=== PATIENT | female | born 1935 | race American Indian/Alaskan Native ===

== ENCOUNTER 2019-01-09 14:01 | Inpatient (IN) | payer OTHER ==
[~2019-01-09] VITALS: Ht 157.5 cm; Wt 70.2 kg
[~2019-01-09 14:01] MED LIST: CALCA500CH; CHOL10002 PO; EZET10 PO; LEVSOD50 PO; Prinivil10 MG PO; [UNRECOGNIZED DRUG - OTHER]
[2019-01-09 14:41] LABS: BASOPHILS ABSOLUTE AUTO 0.06 K/mm3 (0.00-0.23); BASOPHILS PERCENT AUTO 1 % (0-2); EOSINOPHILS PERCENT AUTO 0 % (0-6); Hematocrit 42.8 % (33.0-51.0); Hemoglobin 13.3 g/dL (11.5-16.0); IMMATURE GRAN ABSOLUTE AUTO 0.02 K/mm3 (0.00-0.10); IMMATURE GRAN PERCENT AUTO 0 % (0-1); LYMPHOCYTES ABSOLUTE AUTO 1.17 K/mm3 (0.84-5.20); LYMPHOCYTES PERCENT AUTO 16 % (21-46); MONOCYTES ABSOLUTE AUTO 0.35 K/mm3 (0.16-1.47); MONOCYTES PERCENT AUTO 5 % (4-13); Mean Corpuscular HGB 29.1 pg (26.0-34.0); Mean Corpuscular HGB Conc 31.1 g/dL (31.5-36.5); Mean Corpuscular Volume 94 fL (80-100); Mean Platelet Volume 9.9 fL (9.1-12.4); NEUTROPHILS ABSOLUTE AUTO 5.89 K/mm3 (1.96-9.15); NEUTROPHILS PERCENT AUTO 79 % (41-73); Platelet Count 302 K/mm3 (150-400); RDW Coefficient Variation 14.1 % (11.7-14.2); RDW Standard Deviation 48.3 fL (35.1-46.3); Red Blood Cell Count 4.57 M/mm3 (3.80-5.20); White Blood Cell Count 7.49 K/mm3 (4.00-11.30)
[2019-01-09 14:58] LABS: Albumin, Blood 4.3 g/dL (3.4-5.0); Bilirubin, Total 0.8 mg/dL (0.1-1.0); Bun/Creatinine Ratio 21.7 (12.0-20.0); Calcium, Blood 9.3 mg/dL (8.5-10.1); Creatinine, Blood 1.2 mg/dL (0.40-1.00); Globulin, Blood 4.4 g/dL (2.2-4.0); Potassium, Blood 3.9 mmol/L (3.5-5.5); Total Protein, Blood 8.7 g/dL (6.4-8.2)
[2019-01-09 20:25] LABS: Source, Urine Catheter
[2019-01-09 20:28] LABS: Appearance, Urine Clear (Clear); Bilirubin, Urine Neg (Neg); Blood, Urine 2+ (Neg); Color, Urine Yellow (P-Yellow); Glucose Qualitative, Urine Neg (Neg); Ketones, Urine 3+ (Neg); Leukocyte Esterase, Urine 3+ (Neg); Nitrite, Urine Neg (Neg); Protein, Urine 2+ (Neg); Urobilinogen, Urine NORM (Normal)
[2019-01-09 20:39] LABS: Bacteria Not Seen /hpf; Red Blood Cells, Urine 0-2 /hpf (0-2); Squamous Epithelial Cells Few /hpf (Few)
[2019-01-09] MEDS ORDERED: METO50ER PO (20:43)
[2019-01-09] MEDS ORDERED: QUET25 PO (20:44)
[2019-01-09] MEDS ORDERED: CLON.5 PO (20:45)
[2019-01-09] MEDS ORDERED: DONE5 PO (20:47)
[2019-01-09] MEDS ORDERED: AMLO5 PO (20:49)
--- NOTE | 2019-01-10 02:06 | NUR ---
CONVERTED TO AFLUTTER AT APPROX 0130 PT CONVERTED FROM NSR IN THE 80'S TO AFLUTTER IN THE 120-130'S. NOTIFIED DR. GARCIA. NEW ORDER TO GIVE 5 MG IV LOPRESSOR NOW AND RECHECK IN 30 MINUTES AND GIVE SECOND DOSE OF 5 MG IV LOPRESSOR IF NOT IMPROVED.
--- NOTE | 2019-01-10 02:55 | NUR ---
TELMETRY TECH CALLED AND PT'S HEART RATE DECREASED AND IS CURRENTLY IN THE 90'S.
[2019-01-10 05:28] LABS: BASOPHILS ABSOLUTE AUTO 0.03 K/mm3 (0.00-0.23); BASOPHILS PERCENT AUTO 1 % (0-2); EOSINOPHILS ABSOLUTE AUTO 0.01 K/mm3 (0.00-0.68); EOSINOPHILS PERCENT AUTO 0 % (0-6); Hematocrit 36.4 % (33.0-51.0); IMMATURE GRAN ABSOLUTE AUTO 0.01 K/mm3 (0.00-0.10); IMMATURE GRAN PERCENT AUTO 0 % (0-1); LYMPHOCYTES ABSOLUTE AUTO 1.49 K/mm3 (0.84-5.20); LYMPHOCYTES PERCENT AUTO 31 % (21-46); MONOCYTES ABSOLUTE AUTO 0.47 K/mm3 (0.16-1.47); MONOCYTES PERCENT AUTO 10 % (4-13); Mean Corpuscular HGB 29.1 pg (26.0-34.0); Mean Corpuscular HGB Conc 30.2 g/dL (31.5-36.5); Mean Corpuscular Volume 96 fL (80-100); Mean Platelet Volume 9.8 fL (9.1-12.4); NEUTROPHILS ABSOLUTE AUTO 2.75 K/mm3 (1.96-9.15); NEUTROPHILS PERCENT AUTO 58 % (41-73); Platelet Count 202 K/mm3 (150-400); RDW Coefficient Variation 14.2 % (11.7-14.2); RDW Standard Deviation 50.4 fL (35.1-46.3); Red Blood Cell Count 3.78 M/mm3 (3.80-5.20); White Blood Cell Count 4.76 K/mm3 (4.00-11.30)
[2019-01-10 05:49] LABS: Anion Gap 10 mmol/L (6-16); Blood Urea Nitrogen 25 mg/dL (8-24); Bun/Creatinine Ratio 26.8 (12.0-20.0); CO2, Blood 21 mmol/L (21-32); Calcium, Blood 8.3 mg/dL (8.5-10.1); Chloride, Blood 114 mmol/L (98-108); Creatinine, Blood 0.93 mg/dL (0.40-1.00); Glomerular Filtration Rate >60 (60-); Glucose, Blood 91 mg/dL (70-99); Potassium, Blood 3.7 mmol/L (3.5-5.5); Sodium, Blood 145 mmol/L (136-145)
--- NOTE | 2019-01-10 06:17 | NUR ---
SHIFT SUMMARY PT NEW ED ADMIT THIS EVENING. CONFUSED AND FORGETS ANYTHING SOON AFTER SHE IS TOLD. PT ALSO HAS EXPRESSIVE APHASIA AND HAS DIFFICULTY FINDING HER WORDS AT TIMES. BRUISE AROUND R EYE AND ON R SHOULDER FROM FALL AT HOME. FALL WAS UNWITNESSED PER FAMILY, SON NOTICED IT AFTER WAKING IN THE AM BEFORE PT WAS BROUGHT TO EMERGENCY DEPARTMENT. PT CONFIRMED TO HAVE HAD A STROKE. AMBULATED 1 ASSIST TO [facility]. VOIDED ONLY A SMALL AMOUNT OF VERY DARK URINE. SAMPLE SENT TO LAB. PT MADE NPO, HOWEVER, FAMILY WAS CONCERNED ABOUT PT NOT GETTING HER CLONAZEPAM AND SEROQUEL BEFORE BED. SPOKE WITH ROSSANA HERNANDEZ WHO OKAY'D PT TO TAKE NIGHT TIME MEDICATIONS LONG SHE COULD PASS A SIMPLE BEDSIDE SWALLOW TEST. PT WAS ABLE TO SWALLOW A SIP OF WATER WITH NO PROBLEMS. SPEECH THERAPY ORDERED TO FURTHER EVALUATE. PT SLEPT MOST OF THE NIGHT, SON AT BEDSIDE. HEART RATE CONVERTED AND BECAME ELEVATED THIS EVENING. SEE NOTE. OTHERWISE VSS. WILL CONTINUE TO MONITOR.
--- NOTE | 2019-01-10 06:30 | NUR ---
TELEMETRY JUST CALLED AND PT'S HEART RATE BECAME ELEVATED AGAIN. REMAINS IN AFLUTTER AND JUMPED UP TO 158. WILL GIVE SECOND DOSE OF IV METOPROLOL PREVIOUSLY ORDERED AND MONITOR.
--- NOTE | 2019-01-10 13:31 | NUR ---
ECHOCARDIOGRAM COMPLETE
--- NOTE | 2019-01-10 18:32 | NUR ---
SUMMARY DX CVA. ROSLYN, SHE TRACKS WELL, COMMANDS EXTREMITIES, NO FACIAL DROOP NOTED, SPEECH CLEAR, GENERAL MANAGER/DORSI FLEX STRONG. SHE IS FORGETFUL, DEMONSTRATES CONFUSION. FAMILY STATE THIS AM THAT SHE HAS HX DEMENTIA HOWEVER MORE CONFUSED & FORGETFUL THAN USUAL. SHE PULLED HER IV OUT THIS MORNING. SHE HAS IMPROVED T/O DAY. THIS AFTERNOON THEY STATE SPEECH/MENTATION MUCH IMPROVED NEAR TO BASLINE. TELE HAS BEEN AFLUTTER T/O DAY, HR INCREASES WITH EXERTION, TELE REPORT UP TO 150'S, ORDER METOPROLOL, HR IMPROVED 108 HOWEVER AFLUTTER CONTINUES. R EYE BRUISING, R SHOULDER/ARM BRUISING D/T FALL @ HOME/FAMILY. PT STATE NO PAIN.
--- NOTE | 2019-01-10 21:25 | NUR ---
PT PULLED OUT IV. BOARD WINDERSUKUMAR Mendes ATTEMPTING TO GAIN ACCESS AT THIS TIME.
--- NOTE | 2019-01-11 04:36 | NUR ---
SHIFT SUMMARY PT'S DAUGHTER AT BEDSIDE UNTIL APPROX 2330. APPROX AN HOUR AND A HALF AFTER DAUGHTER LEFT PT WOKE AND WAS VERY UPSET. STATING THAT SHE NEEDED TO GO HOME AND DID NOT WANT TO BE IN THE HOSPITAL. UNAWARE OF WHERE SHE WAS EVEN AFTER BEING TOLD MULTIPLE TIMES. PT PULLED OUT IV AGAIN THIS EVENING. HAD TO HAVE PCU NURSE NEAL FRITZ UP TO USE ULTRASOUND TO PLACE NEW IV. IV WRAPPED WELL AND PT HAS LEFT ALONE SO FAR THE REST OF THIS SHIFT. PT ALSO ATTEMPTED TO REMOVE TELE WHILE AWAKE. TELEMETRY READING AFLUTTER LOW 100'S AT START OF SHIFT. AT APPROX 0122 PT CONVERTED BACK INTO SINUS RHYTHM WITH A RATE OF 65. WAS ABLE TO GET PT TO CALM DOWN AND GET BACK TO SLEEP BUT IT TOOK A LOT OF TIME AND CONVINCING. PT UP TO RESTROOM EASY SBA. VOIDED X 2 THIS SHIFT. URINE CONCENTRATED. ENCOURAGED PT TO DRINK WATER WHILE AWAKE. PT SLEEPING WELL AT THIS TIME. WILL CONTINUE TO MONITOR AND REPORT TO DAY RN.
[2019-01-11 05:24] LABS: BASOPHILS ABSOLUTE AUTO 0.05 K/mm3 (0.00-0.23); BASOPHILS PERCENT AUTO 1 % (0-2); EOSINOPHILS ABSOLUTE AUTO 0.01 K/mm3 (0.00-0.68); EOSINOPHILS PERCENT AUTO 0 % (0-6); Hematocrit 38.6 % (33.0-51.0); Hemoglobin 11.9 g/dL (11.5-16.0); IMMATURE GRAN ABSOLUTE AUTO 0.01 K/mm3 (0.00-0.10); IMMATURE GRAN PERCENT AUTO 0 % (0-1); LYMPHOCYTES ABSOLUTE AUTO 1.87 K/mm3 (0.84-5.20); LYMPHOCYTES PERCENT AUTO 34 % (21-46); MONOCYTES ABSOLUTE AUTO 0.41 K/mm3 (0.16-1.47); MONOCYTES PERCENT AUTO 7 % (4-13); Mean Corpuscular HGB 28.5 pg (26.0-34.0); Mean Corpuscular HGB Conc 30.8 g/dL (31.5-36.5); Mean Platelet Volume 9.6 fL (9.1-12.4); NEUTROPHILS ABSOLUTE AUTO 3.19 K/mm3 (1.96-9.15); NEUTROPHILS PERCENT AUTO 58 % (41-73); Platelet Count 249 K/mm3 (150-400); RDW Coefficient Variation 14.3 % (11.7-14.2); RDW Standard Deviation 47.8 fL (35.1-46.3); Red Blood Cell Count 4.17 M/mm3 (3.80-5.20); White Blood Cell Count 5.54 K/mm3 (4.00-11.30)
[2019-01-11 05:25] LABS: Mean Corpuscular Volume 93 fL (80-100)
[2019-01-11 06:00] LABS: CHOL/HDL RATIO 2.1; Cholesterol 177 mg/dL (50-200); HDL Cholesterol 84 mg/dL (>39); LDL/HDL RATIO 0.8; Low Density Lipoprotein Chol 69 mg/dL (0-110); Triglycerides 119 mg/dL (30-160); Very Low Density Lipoprot Chol 23 mg/dL (6-32)
--- NOTE | 2019-01-11 16:04 | NUR ---
SHIFT SUMMARY NO ACUTE CHANGES. WORKED WITH PT AND OT. SPEECH EVAL COMPLETED. PATIENT SBA TO AMBULATE TO BATHROOM. FAMILY MET WITH CARE MANAGEMENT TO DISCUSS CAREGIVING OPTIONS. PATIENT NEEDS 24HOUR SUPERVISION. MEDICATED X 1 FOR HEADACHE, DENIES NAUSEA AND SHORTNESS OF BREATH. CALL LIGHT IN REACH, WILL CONTINUE TO MONITOR.
--- NOTE | 2019-01-11 17:06 | NUR ---
Per admit trigger, I attempted to meet with Mrs. Sullivan regarding an advanced directive. she was on the phone and did not wish to talk to me. Care-patent engineer/friend at bedside. She tells me a POLST has been completed and is most likely at Dr. Elise's office. Advised we should have a copy of this document. Advanced directive information left with friend. I will remain available.
--- NOTE | 2019-01-11 23:13 | NUR ---
PT VERYY CONFUSED AND ANXIOUS TONIGHT. ATTEMPTED TO CALM PT DOWN, BUT PT BECAME VERY FRANTIC AND AGITATED. PLACED CALL TO SON, COLLEEN, WHO CAME TO HOSPITAL TO BE AT PTs BEDSIDE. PT IS MUCH MORE CALM AT THIS TIME.
--- NOTE | 2019-01-12 05:41 | NUR ---
SHIFT SUMMARY: PT CONFUSED, FRANTIC, AND ANXIOUS ALL OF TONIGHT. PT KEEPS STATING, "THIS IS BIZARRE, I DONT UNDERSTAND WHY IM HERE." AND "WHERE AM I? WHY CANT I GO HOME?" AFTER REORIENTING PT SHE BECOMES CONFUSED AGAIN AND REPEATEDLY ASKS THE SAME QUESTIONS. PT IS UNABLE TO CALM DOWN AND REFUSES ALL PM MEDS FROM THIS RN. PT BECOMES TEARFUL AND CRYING OUT TO GO HOME. PT EXITS BED AND SETS OFF BED ALARM REPEATEDLY; FALL RISK D/T CONFUSION. PLACED CALL TO PT SONCOLLEEN. SON CAME TO HOSPITAL TO BE AT PT'S BEDSIDE T/O THE NIGHT. SON ABLE TO CONVINCE PT TO TAKE PM PILLS, SEROQUEL AND PRN CLONAZEPAM. PT CALMED DOWN AFTER SON ARRIVED AND WAS ABLE TO SLEEP 2-3 HRS TONIGHT. SON LEFT EARLY THIS AM, AND PT HAS BEEN FRANTIC AND ANXIOUS SINCE HE LEFT. PT DOES NOT RECALL SON EVER BEING AT BEDSIDE TONIGHT. PT IS ASKING THE SAME QUESTIONS AGAIN AND IS DISORIENTED AND UNCONSOLABLE. BED ALARM IS ON FOR SAFETY. NO OTHER CHANGES TO REPORT. WILL CONT TO MONITOR AND PROVIDE CARE UNTIL PRESUMED BY ONCOMING RN.
--- NOTE | 2019-01-12 16:51 | NUR ---
SHIFT SUMMARY NO ACUTE CHANGES. PATIENT CALM AND COOPERATIVE DURING DAY. WORKED WITH PT/OT. FAMILY AT BEDSIDE. THIS AFTERNOON AFTER FAMILY LEFT PATIENT BECAME VERY AGITATED AND TEARFUL ASKING WHERE SHE WAS AND WHY HER FAMILY WAS NOT HERE. PATIENT REASSURED THAT THEY WOULD BE BACK. PATIENT DENIES NAUSEA, PAIN, AND SHORTNESS OF BREATH. CALL LIGHT IN REACH, WILL CONTINUE TO MONITOR.
--- NOTE | 2019-01-12 19:23 | NUR ---
Initial Visit: Palliative Care Consult for AD/POLST and Advanced Care Planning. Pt is A&Ox2. She is unable to state current month and year. Pt denies pain at this time. She reports anxiety but unable to report intensity. She states the anxiety is due to being in the hospital and having a stroke. Pt's son Jay, and daughter in law Mary are present during visit. Pt reports that she is of [employer]ish peggy and denies a need for a comb machine operator visit at this time. Engaged in therapeutic conversation regarding goals of care. Jay and Mary report the plan is for Jay and Mary to sell their home and move in with the Pt to provide care. They also plan to provide caregivers. Mary reports the Pt develops significant anxiety when they leave from visiting the Pt in the hospital and Jay has come back and spent the night with her. Mary and Jay reports having someone familiar with her at all times helps with managing the Pt's anxiety. Validated this plan and educated family on disease process including signs and symptoms the Pt may experience as the disease process takes its coarse. Educated family on the importance of routine and continuity of care as well. Discussed AD/POLST with Pt and family. Mary reports that she thought the Pt had a completed POLST but has not seen it. Left POLST and AD with family and educated on each section to complete including risk factors of life sustaining measures. V/U made by family. Family reports they will look for existing POLST and complete a new one if needed. No other concerns reported at this time. Plan: Obtain copy of POLST/AD once completed. Will remain available.
--- NOTE | 2019-01-13 07:50 | NUR ---
SHIFT SUMMARY: PT HAD A MUCH BETTER NIGHT, NO ANXIETY OR AGITATION. ADMINISTERED PM MEDS EARLY PER FAMILY REQUEST AND PT FELL ASLEEP AROUND 2200 AND STAYED ASLEEP T/O THE NIGHT. THIS AM UPON WAKING, PT WAS NOT ANXIOUS AND COOPERATIVE c CARE. ALERT TO SELF AND FAMILY ONLY. TELE IN PLACE; NSR @ 69 BPM. WILL CONT TO MONITOR AND PROVIDE CARE UNTIL PRESUMED BY ONCOMING RN.
--- NOTE | 2019-01-13 11:07 | NUR ---
IV CARDIZEM WAS GIVEN WITH GOOD RESULTS. SHE IS STILL A FLUTTER BUT RATE CONTROLLED.
--- NOTE | 2019-01-13 11:17 | NUR ---
I WAS NOTIFIED BY THE TAPE SEWING MACHINE OPERATOR THIS MORNING AFTER BREAKFAST THAT VAZQUEZ WAS TACHY AT 160/MIN. SHE HAD BEEN TACHY. SHE WAS COMPLETELY ASYMPTOMATIC THROUGHOUT THE AM BEING ASSISTED TO THE BATHROOM A COUPLE OF TIMES, UP IN THE CHAIR FOR BREAKFAST AND AMBULATING THE HULL BEFORE BREAKFAST WITH PT. LATER I WAS NOTIFIED THE RHYTHM WAS AFLUTTER WITH RATE THEN 133. I NOTIFIED MD. HE ORDERED THE ONE TIME DOSE OF CARDIZEM WHICH WAS EFFECTIVE. HER DIL BERNARDO IS HERE. SHE UNDERSTANDS THAT VAZQUEZ HAD TO BE TREATED FOR THE ARRYTHMIA THIS MORNING.
[2019-01-13] MEDS ORDERED: Lopressor 25 mg25 MG PO (13:11)
[2019-01-13] MEDS ORDERED: ATOR40TA PO ×3 (13:12→13:24)
[2019-01-13] MEDS ORDERED: ASPI81CH PO (13:12)
--- NOTE | 2019-01-13 13:13 | NUR ---
SHE IS DRESSED AND READY FOR DISCHARGE. OT HELPED HER. HER DIL WENT HOME TO GET A DIFFERENT VEHICLE. VAZQUEZ WAS IN NSR FOR A VERY SHORT PERIOD THEN BACK IN AFLUTTER BUT RATE CONTROLLED. SHE WAS NEVER SYMPTOMATIC. SHE AMBULATES WELL. SL DC'D. SITE PINK. TELE DC'D.
[2019-01-13] MEDS ORDERED: CEFU500T30 PO (13:26)
[2019-01-13] MEDS ORDERED: XARELTO15 MG PO (13:27)
--- NOTE | 2019-01-13 15:10 | NUR ---
SHE HAS FALLEN ASLEEP IN THE CHAIR WAITING FOR HER DIL TO RETURN.
--- NOTE | 2019-01-13 17:02 | NUR ---
DISCHARGED TO HOME AT 1613 WITH HER DIL. SHE HAS INSTRUCTIONS AND BELONGINGS.
== END 2019-01-13 16:13 | disposition home or self-care (01) | DRG 65 ==
LOC: ER 14:01 → MEDS 19:38
PROVIDERS: Internal Medicine; Nurse Practitioner Acute Care; Physician Assistant; ADMIT Hospitalist
DX: I63.9 Cerebral infarction, unspecified (principal); N17.9 Acute kidney failure, unspecified; N39.0 Urinary tract infection, site not specified; G93.40 Encephalopathy, unspecified; R48.2 Apraxia; I10 Essential (primary) hypertension; E03.9 Hypothyroidism, unspecified; W19.XXXA Unspecified fall, initial encounter; F03.90 Unspecified dementia, unspecified severity, without behavioral disturbance, psychotic disturbance, mood disturbance, and anxiety; B95.5 Unspecified streptococcus as the cause of diseases classified elsewhere; I48.0 Paroxysmal atrial fibrillation
CPT/HCPCS: 36415; 70450; 72125; 73030; 80048; 80053; 80061; 81001; 84443; 85025; 87086; 87147; 90686; 92507; 92523; 93306; 93880; 97116; 97162; 97166; 97530; 97535; 99285-25; J0690; J0696; J1650; J7030; J7050

== ENCOUNTER → 2019-01-19 | Outpatient (CLI) | payer OTHER ==
[~2019-01-19] MED LIST changes: +AMLO5 PO; +ASPI81CH PO; +ATOR40TA PO; +CEFU500T30 PO; +CLON.5 PO; +DONE5 PO; +Lopressor 25 mg25 MG PO; +METO50ER PO; +QUET25 PO; +XARELTO15 MG PO
[2019-01-19 14:10] LABS: Source, Urine Clean Catch
[2019-01-19 14:16] LABS: Blood, Urine 2+ (Neg); Glucose Qualitative, Urine Neg (Neg); Ketones, Urine 1+ (Neg); Leukocyte Esterase, Urine 2+ (Neg); Nitrite, Urine Neg (Neg); Protein, Urine 2+ (Neg); Specific Gravity, Urine 1.025 (1.003-1.022); Urobilinogen, Urine NORM (Normal)
[2019-01-19 14:32] LABS: Bilirubin, Urine 1+ (Neg)
[2019-01-19 14:33] LABS: Appearance, Urine Hazy (Clear); Color, Urine Yellow (P-Yellow); Squamous Epithelial Cells Few /hpf (Few)
[2019-01-19 14:34] LABS: Bacteria Few /hpf
== END | disposition home or self-care (01) ==
LOC: LAB HH 14:09
PROVIDERS: Family Medicine
DX: N39.0 Urinary tract infection, site not specified (principal)
CPT/HCPCS: 81001; 87077; 87086; 87186

== ENCOUNTER 2019-09-10 09:14 | Inpatient (IN) | payer OTHER ==
[~2019-09-10] VITALS: Ht 162.6 cm; Wt 66.0 kg
[~2019-09-10 09:14] MED LIST changes: -CHOL10002 PO; +DEXTROMETHORPHAN PO; +LORA.5 PO; +OMEPRAZOLE20 MG PO; +VITAMIN D31000 UNI2 PO
[2019-09-10] MEDS ORDERED: Klonopin0.5 MG PO (09:38)
[2019-09-10] MEDS ORDERED: DONE5 PO ×2 (09:38→11:45)
[2019-09-10] MEDS ORDERED: EZET10 PO (09:39)
[2019-09-10] MEDS ORDERED: ATOR40TA PO (09:39)
[2019-09-10] MEDS ORDERED: Prinivil10 MG PO (09:39)
[2019-09-10] MEDS ORDERED: XARELTO15 MG PO ×3 (09:39→12:52)
[2019-09-10] MEDS ORDERED: Aspirin EC81 MG PO (09:40)
[2019-09-10] MEDS ORDERED: VITAMIN D31000 UNI2 PO (09:40)
[2019-09-10] MEDS ORDERED: LEVSOD50 PO (09:41)
[2019-09-10] MEDS ORDERED: LORA.5 PO (09:41)
[2019-09-10] MEDS ORDERED: METO25ER PO (09:41)
[2019-09-10] MEDS ORDERED: QUET25 PO ×3 (09:42→11:56)
[2019-09-10] MEDS ORDERED: Prilosec10 M1 PO (09:42)
[2019-09-10] MEDS ORDERED: TUSSIN COUGH (09:44)
[2019-09-10 09:49] LABS: BASOPHILS ABSOLUTE AUTO 0.08 K/mm3 (0.00-0.23); BASOPHILS PERCENT AUTO 1 % (0-2); EOSINOPHILS PERCENT AUTO 2 % (0-6); Hemoglobin 9.1 g/dL (11.5-16.0); IMMATURE GRAN ABSOLUTE AUTO 0.02 K/mm3 (0.00-0.10); IMMATURE GRAN PERCENT AUTO 0 % (0-1); LYMPHOCYTES ABSOLUTE AUTO 1.89 K/mm3 (0.84-5.20); LYMPHOCYTES PERCENT AUTO 30 % (21-46); MONOCYTES ABSOLUTE AUTO 0.41 K/mm3 (0.16-1.47); MONOCYTES PERCENT AUTO 7 % (4-13); Mean Corpuscular HGB 27.7 pg (26.0-34.0); Mean Corpuscular HGB Conc 30.3 g/dL (31.5-36.5); Mean Platelet Volume 9.8 fL (9.1-12.4); NEUTROPHILS ABSOLUTE AUTO 3.78 K/mm3 (1.96-9.15); NEUTROPHILS PERCENT AUTO 60 % (41-73); Platelet Count 308 K/mm3 (150-400); RDW Coefficient Variation 15.6 % (11.7-14.2); RDW Standard Deviation 49.2 fL (35.1-46.3); Red Blood Cell Count 3.29 M/mm3 (3.80-5.20); White Blood Cell Count 6.28 K/mm3 (4.00-11.30)
[2019-09-10 09:55] LABS: Mean Corpuscular Volume 91 fL (80-100)
[2019-09-10 10:03] LABS: International Normalized Ratio 0.93; Prothrombin Time Results 9.9 Sec (9.7-11.5)
[2019-09-10 10:06] LABS: Albumin, Blood 3.5 g/dL (3.4-5.0); Bilirubin, Total 0.6 mg/dL (0.1-1.0); Bun/Creatinine Ratio 23.3 (12.0-20.0); Calcium, Blood 8.7 mg/dL (8.5-10.1); Creatinine, Blood 1.2 mg/dL (0.40-1.00); Globulin, Blood 3.5 g/dL (2.2-4.0); Potassium, Blood 4.3 mmol/L (3.5-5.5)
[2019-09-10] MEDS ORDERED: ATORVASTATIN CA40 MG PO (11:43)
[2019-09-10] MEDS ORDERED: OMEPRAZOLE20 MG PO (11:43)
[2019-09-10] MEDS ORDERED: PRINIVIL10 MG PO (11:44)
[2019-09-10] MEDS ORDERED: Lopressor 25 mg25 MG PO (11:45)
[2019-09-10] MEDS ORDERED: Clonazepam0.5 MG PO (11:45)
[2019-09-10] MEDS ORDERED: EZETIMIBE10 MG PO (11:45)
[2019-09-10] MEDS ORDERED: AMLO10 PO (11:46)
[2019-09-10] MEDS ORDERED: ZYRTEC10 M2 PO (11:56)
[2019-09-10] MEDS ORDERED: FERSU300 PO (11:56)
[2019-09-10] MEDS ORDERED: Bactrim 400-801 EACH PO (12:53)
[2019-09-10] MEDS ORDERED: NUEDEXTA 20-101 EACH PO (13:02)
[2019-09-10 13:34] LABS: Source, Urine Catheter
[2019-09-10 13:39] LABS: Bilirubin, Urine Neg (Neg); Blood, Urine Neg (Neg); Glucose Qualitative, Urine Neg (Neg); Ketones, Urine Neg (Neg); Leukocyte Esterase, Urine 3+ (Neg); Nitrite, Urine Pos (Neg); Protein, Urine 1+ (Neg); Urobilinogen, Urine NORM (Normal)
[2019-09-10 13:58] LABS: Appearance, Urine Hazy (Clear); Color, Urine Yellow (P-Yellow)
[2019-09-10 13:59] LABS: Triple Phosphate Crystals Mod /hpf
[2019-09-10 14:00] LABS: Bacteria Many /hpf; Red Blood Cells, Urine 0-2 /hpf (0-2); Squamous Epithelial Cells Rare /hpf (Few)
--- NOTE | 2019-09-10 14:56 | NUR ---
PT ARRIVED FROM THE ER THIS AFTERNOON FROM THE ED. SHE WAS ASSISTED TO BED AND ORIENTED TO HER ROOM AND NURSING STAFF. PT MOANS IN RESPONSE TO QUESTIONS BUT HAS NO CLEAR WORDS AND STRUGGLES TO MAKE HER NEEDS KNOWN. HER MERAZ IS PATENT WITH CLEAR YELLOW URINE BUT SHE IS TRYING TO PULL ON IT. PT APPEARS ANXIOUS AND IS NOT EASILY RE-DIRECTED. SHE DISPLAYS LEFT SIDED NEGLECT. PT IS PULLING ON HER CLOTHES AND ALL THE BEDDING CONSTANTLY. PAIN MEDS WERE GIVEN ORDERED. OT CAME AND WORKED WITH THE PT AT THE BEDSIDE AND PALLIATIVE CARE ALSO MET WITH PT AND HER FAMILY. PT WILL BE TRANSFERRED TO ROOM 344 ROSALVA THE ROOM IS CLEAN AND FAMILY IS AGREEABLE TO THE ROOM MOVE. FAMILY IS AT THE BEDSIDE WITH THE PT NOW.
--- NOTE | 2019-09-10 16:40 | NUR ---
PT WAS TRANSFERRED TO [facility]. REPORT WAS GIVEN TO RECEIVING NURSE. FAMILY REMIANS AT BEDSIDE AND ALL PERSONAL BELONGINGS SENT WITH PT.
--- NOTE | 2019-09-10 17:55 | NUR ---
SHE WAS ADMITTED FROM THE ER TO RM 309 TODAY FOR A CVA AND MOVED TO ROOM 344 IN THE SCU AT 1630 D/T HER CONFUSION, RESTLESSNESS AND FEAR OF PULLING OUT HER IV OR MERAZ CATHETER. HER FAMILY IS AT THE BEDSIDE. THE STRUCTURAL SHOP HELPER SPENT TIME WITH ALL OF THEM AND ALL AGREED TO MEET AGAIN ON FRIDAY FOR FURTHER DECISIONS. SHE HAS RECEIVED FENTANYL X2 SO FAR SINCE ADMITTED TO MEDICAL FLOOR. SHE RUBS HER R EYE AND SEEMS TO INDICATE TO HER FAMILY THAT HER HEAD HURTS. SHE REMAINS RESTLESS IN BED AND CONFUSED. 3 RAILS UP AND BED ALARM ON. IVF'S CONTINUE. COBAN COVERS THE IV SITE AND HER MERAZ CATHETER TUBING IS UNDER PAJAMA BOTTOMS.
--- NOTE | 2019-09-10 19:01 | NUR ---
review of OT and PT consult and pt symptoms with hospitalist. change to haldol as first line or her increasing aggitation and dyscomfort. discussed reduced geriatric dosing.
--- NOTE | 2019-09-10 20:22 | NUR ---
AGGITATION/ANXIETY: PATIENT SCORES A 7 ON FLACC SCALE BUT SAY'S "NO PAIN". AT THIS POINT SOME WORDS ARE INDERSTANDABLE. PATIENT IS EMOTIONALLY LIABLE AND TEARFUL. IV HALDOL IS GIVEN PER MAR. DAUGHTER IN[place] IS AT BEDSIDE AND BED ALARM IS ON FOR SAFETY.
--- NOTE | 2019-09-10 21:26 | NUR ---
AGGITATION/ANXIETY: PATIENT HAS POOR EFFECT FROM HALDOL AND CONTINUES
--- NOTE | 2019-09-10 22:48 | NUR ---
CARDIAC: ER REGISTRAR CALLS TO REPORT HEART RATE JUMP UP INTO THE 140'S. PATIENT CONTINUES TO BE RESTLESS IN BED, TRYING TO PULL MERAZ. BP IS 127/89 HR 100 AT THIS TIME. PATIENT IS REPOSITIONED AND MOUTH CARE IS GIVEN. BED ALARM IS ON FOR SAFETY.
--- NOTE | 2019-09-10 23:46 | NUR ---
CARDIAC: DAMION ARAGON WIRED MUSIC OPERATOR WAS UPDATED ON HEART RATE AFTER LOPRESSOR 5MG WAS GIVEN. HR NOW IS 120-150'S, A FIB IS OBSERVED. ORDER FOR SECOND DOSE OF LOPRESSOR IS OBTAINED.
--- NOTE | 2019-09-11 00:52 | NUR ---
CARDIAC: HEART RATE CONTINUES TO BE IN THE 150'S AFTER TWO DOSES OF LOPRESSOR. DAMION ARAGON NP IS NOTIFIED. PATIENT WILL BE TRANSFERED TO PCU FOR CARDIAC GTT INTERVENTION.
--- NOTE | 2019-09-11 01:40 | NUR ---
TRANSFER: PATIENT WAS TRANSFERED TO PCU 1, AFTER REPORT WAS CALLED TO ACCOUNTS SPECIALIST.
[2019-09-11 03:45] LABS: Hematocrit 30.9 % (33.0-51.0); Hemoglobin 9.5 g/dL (11.5-16.0); Mean Corpuscular HGB 28.5 pg (26.0-34.0); Mean Corpuscular HGB Conc 30.7 g/dL (31.5-36.5); Mean Corpuscular Volume 93 fL (80-100); Mean Platelet Volume 9.8 fL (9.1-12.4); Platelet Count 329 K/mm3 (150-400); RDW Coefficient Variation 15.5 % (11.7-14.2); RDW Standard Deviation 50.2 fL (35.1-46.3); Red Blood Cell Count 3.33 M/mm3 (3.80-5.20); White Blood Cell Count 9.45 K/mm3 (4.00-11.30)
[2019-09-11 04:04] LABS: Albumin, Blood 3.5 g/dL (3.4-5.0); Bilirubin, Total 0.7 mg/dL (0.1-1.0); Calcium, Blood 8.7 mg/dL (8.5-10.1); Globulin, Blood 3.5 g/dL (2.2-4.0); Potassium, Blood 3.9 mmol/L (3.5-5.5)
--- NOTE | 2019-09-11 05:20 | NUR ---
SHIFT SUMMARY PT RESTING IN ROOM, OCCASIONALLY RESTLESS. PT HAS NOT SLEPT WELL SINCE ARRIVAL TO UNIT. PT WAS NOTED TO BE SLEEPING SOUNDLY FOR SHORT PERIOD ROUGHLY 1 HOUR, AT THIS POINT HEART RATE WAS NOTED TO GO DOWN TO 60'S, AND CARDIZEM WAS TITRATED DOWN TO 10ML/HR AT 0330. ONE HOUR LATER PT WAS NOTED TO BE VERY RESTLESS IN ROOM ONCE AGAIN AND PER TELE HEART RATE HAD CLIMBED INTO 100'S-120. PT REPOSITIONED IN BED AND STIMULI REDUCED, PT APPEARED TO CALM SLIGHTLY BUT STILL RESTLESS AND PULLING AT BLANKETS AND CLOTHES IN BED. RESP EVEN AND SLIGHTLY TACHY W/ EXERTION SATS >92% ON RA. CARDIZEM GTT CURRENTLY INFUSING AT 10ML/HR MONITORING PT HR. BED ALARM ON FOR SAFETY. REDUCED STIMULI IN ROOM.
--- NOTE | 2019-09-11 07:11 | NUR ---
SUPERVISING AIRPLANE PILOT REPORTS PT IS NOW IN NSR OF 07
--- NOTE | 2019-09-11 14:40 | NUR ---
met with patient son to review plan of care and prognsosis. they will need equipment when she returns home
[2019-09-12 04:17] LABS: BASOPHILS ABSOLUTE AUTO 0.05 K/mm3 (0.00-0.23); BASOPHILS PERCENT AUTO 1 % (0-2); EOSINOPHILS ABSOLUTE AUTO 0.05 K/mm3 (0.00-0.68); EOSINOPHILS PERCENT AUTO 1 % (0-6); Hemoglobin 8.7 g/dL (11.5-16.0); IMMATURE GRAN ABSOLUTE AUTO 0.01 K/mm3 (0.00-0.10); IMMATURE GRAN PERCENT AUTO 0 % (0-1); LYMPHOCYTES ABSOLUTE AUTO 1.47 K/mm3 (0.84-5.20); LYMPHOCYTES PERCENT AUTO 21 % (21-46); MONOCYTES ABSOLUTE AUTO 0.57 K/mm3 (0.16-1.47); MONOCYTES PERCENT AUTO 8 % (4-13); Mean Corpuscular HGB 27.4 pg (26.0-34.0); Mean Corpuscular Volume 91 fL (80-100); Mean Platelet Volume 9.6 fL (9.1-12.4); NEUTROPHILS ABSOLUTE AUTO 4.78 K/mm3 (1.96-9.15); NEUTROPHILS PERCENT AUTO 69 % (41-73); Platelet Count 291 K/mm3 (150-400); RDW Coefficient Variation 15.9 % (11.7-14.2); RDW Standard Deviation 51.6 fL (35.1-46.3); Red Blood Cell Count 3.18 M/mm3 (3.80-5.20); White Blood Cell Count 6.93 K/mm3 (4.00-11.30)
[2019-09-12 04:46] LABS: Bun/Creatinine Ratio 13.4 (12.0-20.0); Calcium, Blood 8.5 mg/dL (8.5-10.1); Creatinine, Blood 0.97 mg/dL (0.40-1.00); Potassium, Blood 3.7 mmol/L (3.5-5.5); Thyroid Stimulating Hormone 2.52 uIU/mL (0.360-4.800)
--- NOTE | 2019-09-12 05:39 | NUR ---
SHIFT SUMMARY PT SLEEPING IN ROOM COMFORTABLY AT THIS TIME. NO ACUTE CHANGES IN STATSU T/O NIGHT. PT HAS PERIODS OF GOOD SLEEP FOR COUPLE HOURS AT A TIME AFTER BEING MEDICATED FOR PAIN AND RESTLESSNESS. PT ABLE TO RESPOND WITH SHORT SENTANCES TO STAFF AND HAS STARTED TO BE ABLE TO MOVE L LEG AND FOOT WITH MORE FORCE. L ARM STILL APPEARS TO BE FLACCID AND MOVEMENT ONLY TO PAINFUL STIMULI. RESP EVEN UNLABORED ON RA W/ SATS >92%. AT APPROX 0515 THIS AM PT BECAME RESTLESS IN ROOM, STAFF HAD JUST LEFT ROOM AFTER BEING IN ROOM MONITORING PT FOR ROUGHLY 30 MIN TO HELP REDUCE PT STRESS, PT PULLED CATHETER OUT. PER BRENDA PATINO WHO WENT TO [facility] ON PT, BALLOON APPEARED TO HAVE BEEN DEFLATED AND NO BLOOD OR TRAUMA WAS VISIBLE TO PT URETHRA. PT APPEARS TO BE MUCH MORE RELAXED AND COMFORTABLE AFTER PULLING CATEHTER. AT THIS TIME CATHETER IS NOT REINSERTED D/T PT MENTATION BECOMING MORE AND MORE CLEAR, AND PT STARTING TO BE ABLE TO STATE NEEDS. ATTENDS IN PLACE AT THIS TIME FOR INCONTINENCE. CALL LIGHT IN REACH, BED ALAMR ON FOR SAFETY.
--- NOTE | 2019-09-12 07:44 | NUR ---
ELEVATED HR PT NPO. LOPRESSOR IV PRN HR ON EMAR. PT MEDICATED WITH LOPRESSOR 5MG IV X1. BP AFTER 136/98. AFIB HR 150'S. CRICKET POT.
--- NOTE | 2019-09-12 14:40 | NUR ---
NOTE PT ALERT AND COOPERATIVE WITH CARE. AFIB. RATE 120-150 BPM. ISTRATE AWARE. BP STABLE[address] MORALESTRATE AWARE OF LOPRESSOR DOSE X2. PT ALERT. MOVING LEFT UE GROSS MOTOR. PT ABLE TO STAND WITH 2 ASSIST AND GAIT BELT TO PIVOT TO BSC. VOID X2. VSS. FAMILY HERE AT BEDSIDE. THEY RELATE THAT PT NEEDS TO HAVE ROUTINE ATIVAN OTHERWISE SHE BECOMES VERY AGGITATED. FAMILY IS STILL PLANING ON HOSPICE FOR DISCHARGE. CONTINUE POT.
--- NOTE | 2019-09-12 18:35 | NUR ---
EVENING NOTE PT AWAKE AND ALERT. SHE FREQUENTLY ATTEMPTS TO CLOM OOB. BED ALARM ON. AFIB. RATE 80-150BPM. AFIB AND AFLUTTER. BP STABLE. PT DOESN'T REDIRECT WELL. FAMILY AT BEDSIDE. DAUGHTER OSMANI WANTS PT SEDATED AND COMFORTABLE BUT PT SON (AMANDA) WANTS HER AWAKE AND KICKING. PT TRIES TO HIT AND BITE AT TIMES. ATIVAN GIVEN X2 AND FENTANYL GIVEN X2. PT ABLE TO BEAR WEIGHT AND TRANSFER WITH 2 ASSIST TO BSC. VOIDED X2 TODAY. NPO D/T CONCERNS ABOUT SAFE SWALLOW. HOB ELEVATED 30+ FOR ASPIRATION PRECAUTIONS. PT LIKES ROOTBEER ON HER SPONGE POPS. CONTINUE POT.
--- NOTE | 2019-09-12 20:42 | NUR ---
ASSUMED CARE AT 1900./ CONSTANTLY YELLING OUT AND EXTREME AGGITATION AT THAT TIME . FLAILING LEGS AROUND RAIL. ALUTTER HR 130 SUSTAINING , SOME VERBAL CALMING BUT YELLING OUT NAMES . SLIGHT SLUR TO SPEECH BUT MOSTLY CLEAR WORDS. NO ACUTE PAIN ESTABLISHED. STATED NEED TO VOID AND ONE PERSON ASSIST TO BSC. EXTREME WEAKNESS AND 2 PERSON BACK TO BED. FACIAL GRIMACE AND FLACC SCALE ASSESSED. FENTENYL. AND IV LOPRESSOR GIVEN . EFFECTIVE RESULTS AND HR 80 . WHILE OFF TO SLEEP. AROUSABLE AND FEW MUMBLED WORDS AND BACK TO SLEEP
--- NOTE | 2019-09-12 21:26 | NUR ---
VERY STRONG RT EXTREMITIES AND FOLLOWS COMMANDS MOSTLY FOR STRENGTH EVAL. LT SIDE NEGLECT AND IF LT ARM IN VIEW OF RT AREA HELD UP LT ARM A FEW SECONDS. DOES NOT GRASP W/ LT HAND; TO COMMAND AND NOT NOTED SPONTANEOUSLY. GROSS MOTOR MOVEMENT NOTED SPONTANEOUSLY. LT FACIAL DROOP AND WHILE SLEEPY. SLOW SLURRED SPEECH. CONJUGATE EYE MOVEMENT LIMITED. LT SIDE NEGLECT AND DOES NOT FOLLOW OBJECT TO LT ONLY RT. JOSE 2/2, LT LEG VERY WEAK BUT SPONTANIOUS MOVEMENT AND WEAK PUSH OF LT FOOT. UNABLE TO BEND; AT KNEE NOW .
--- NOTE | 2019-09-12 23:33 | NUR ---
MORE RESTLESS POST OOB BSC. STANDS AND GROSS MOTOR USE OF LT LEG. AWARE OF NAME AND . AND FOLOWS COMMANDS. GOOD DEEP BREATHING EFFORT TO INSTRUCTION. NPO . ESCALATING AND ATIVAN GIVEN AT 2200. AFLUTTER HR BACK UP TO 150 UNTIL CALMING POST ATIVAN. AND OFF TO SLEEP/.
--- NOTE | 2019-09-13 02:03 | NUR ---
INCREASED RESTLESSNESS AND AGGITATION. PICKING AND PULLING; AT BEDDING. HR 130 BP WNL FOR IV LOPRESSOR. AND GIVEN. 1 MG ATIVAN GIVEN. KNOWS BIRTHDAY AND NAME . VERY MUMBLING AND SLURRED SPEECH. MOVES BOTH LEGS SPONTANEOUSL. GROSS MOTOR MOVEMENT LT ARM. RT EYE LID SEEMS MORE DROOPY THAN LT. ENC TO OPEN WIDE BOTH EYES AND RT LESS OPEN .
[2019-09-13 03:57] LABS: BASOPHILS ABSOLUTE AUTO 0.08 K/mm3 (0.00-0.23); BASOPHILS PERCENT AUTO 1 % (0-2); EOSINOPHILS ABSOLUTE AUTO 0.09 K/mm3 (0.00-0.68); EOSINOPHILS PERCENT AUTO 1 % (0-6); Hematocrit 34.2 % (33.0-51.0); Hemoglobin 10.2 g/dL (11.5-16.0); IMMATURE GRAN ABSOLUTE AUTO 0.01 K/mm3 (0.00-0.10); IMMATURE GRAN PERCENT AUTO 0 % (0-1); LYMPHOCYTES ABSOLUTE AUTO 1.34 K/mm3 (0.84-5.20); LYMPHOCYTES PERCENT AUTO 15 % (21-46); MONOCYTES PERCENT AUTO 7 % (4-13); Mean Corpuscular HGB 27.8 pg (26.0-34.0); Mean Corpuscular HGB Conc 29.8 g/dL (31.5-36.5); Mean Corpuscular Volume 93 fL (80-100); Mean Platelet Volume 9.4 fL (9.1-12.4); NEUTROPHILS ABSOLUTE AUTO 6.88 K/mm3 (1.96-9.15); NEUTROPHILS PERCENT AUTO 76 % (41-73); Platelet Count 304 K/mm3 (150-400); RDW Coefficient Variation 15.7 % (11.7-14.2); RDW Standard Deviation 52.3 fL (35.1-46.3); Red Blood Cell Count 3.67 M/mm3 (3.80-5.20)
[2019-09-13 04:20] LABS: Anion Gap 8 mmol/L (6-16); Blood Urea Nitrogen 16 mg/dL (8-24); Bun/Creatinine Ratio 17.1 (12.0-20.0); CO2, Blood 24 mmol/L (21-32); Calcium, Blood 8.9 mg/dL (8.5-10.1); Chloride, Blood 112 mmol/L (98-108); Creatinine, Blood 0.94 mg/dL (0.40-1.00); Glomerular Filtration Rate >60 (60-); Glucose, Blood 100 mg/dL (70-99); Potassium, Blood 3.6 mmol/L (3.5-5.5); Sodium, Blood 144 mmol/L (136-145)
--- NOTE | 2019-09-13 06:05 | NUR ---
SHIFT SUMMARY . RESTLESS FREQ AND NEED TO VOID . STARTS TO ESCALATE AND UP; TO BSC AND NOW HR 150. MUMBLES BUT ABLE TO DETERMINE NEEDS. VOIDS WHEN UP./ LOPRESSOR DUE AND SLOWS HR AND BACK TO SLEEP. NO CHANGE FROM ABOVE ASSESS. NEURO SAME. GAIT BELT USED AND BED ALARM ON AT ALL TIMES.
--- NOTE | 2019-09-13 06:20 | NUR ---
CONVERTED TO SR AT 70 RATE. SLEEPING SOUNDLY AT THIS TIME.
--- NOTE | 2019-09-13 12:38 | NUR ---
TRANSFER TO 349. REPORT CALLED TO CHARLIE HENSLEY RN. PT TO TRANSFER VIA BED. CONTINUE POT.
--- NOTE | 2019-09-13 14:24 | NUR ---
PT TRANSFERED TO MEDICAL FLOOR VIA BED. PT SLEEPING. REPORT RECIEVED PRIOR TO TRANSFER FROM PCU BY SUKUMAR HYATT. NO FAMILY PRESENT.
--- NOTE | 2019-09-13 16:08 | NUR ---
Spiritual Care inital note: Pt was tearful and restless. DIL, Mary at bedside and very concerned. Leidy wanted prayer, but was unable to focus. She alternates between tearfulness, anger, fear. I provided theraputic listening to Mary's frustrations. Affirmed her emotions and built good rapport. Mary states that both she and pt's son understand if pt fails swallow eval, "it's a game-changer." Pt transferred to [facility] in early afternoon. No family present on 2nd visit. Pt appears to be sleeping comfortably. I will remain available.
--- NOTE | 2019-09-13 18:19 | NUR ---
SHIFT SUMMARY. PT IS ALERT, DISORIENTATED, GARBLED SPEECH, DIFFICULT TO UNDERSTAND. CONTINENT THUS FAR THIS SHIFT. PT UP TO CHAIR THIS EVENING FOR COMFORT, DAUGHTER IN LAW AT BEDSIDE. PT GRASPING FOREHEAD, SLIGHT MOANING AND GRIMACING, PRN FENTANYL GIVEN, PT SLEEPING SHORTLY AFTER ADMINISTRATION. NO NEW CHANGES OR CONCERNS.
--- NOTE | 2019-09-13 18:52 | NUR ---
met with family and review of pt care needs . will follow up tomorrow on decision now that speech has seen pt.
--- NOTE | 2019-09-14 00:03 | NUR ---
HR/RHYTHM AT 2328 I WAS NOTIFIED, BY PCU CELLOPHANE WORKER HAYLEY, THE PT HAD CONVERTED TO A. FLUTTER FROM NSR W/HR 140-150'S & SHE HAD BEEN SUSTAINING THIS RHYTHM FOR ROUGHLY 2 MIN. PT DENIES DYSPNEA, PALPATIONS, CHEST PAIN & RESTING COMFORTABLY IN RECLINER. REST OF VS STABLE. NOTIFIED CHARGE NURSE EMETERIO Sin ADMINISTERED 5MG IV METOPROLOL PER ORDERS. AT 2400 PT STILL A. FLUTTER W/HR DROPPING TO 115-117. I WILL CONTINUE TO MONITOR.
--- NOTE | 2019-09-14 02:38 | NUR ---
HR/RHYTHM AT 2450 I WAS NOTIFIED PTS HR WAS 150-160'S AT A. FLUTTER FOR THE PAST 15 MIN, BY PCU SENIOR FACILITIES MANAGER. PT WAS AGITATED/RESTLESS, THREW BATTERY FAN @MANDREL PRESS HAND, WAS PICKING @LINEN & ATTEMPTING TO GET OUT OF CHAIR W/O HELP. NOTIFIED CHARGE NURSE EMETERIO Mazariegos @0105. MEDICATED W/HALDOL PER ORDERS @0112. RECHECKED HR @0123- 130'S AFLUTTER. RECHECKED HR @0140- STILL @130'S A. FLUTTER. GAVE IV ATIVAN PER ORDERS @0223-STILL 120-150'S A. FLUTTER, AVERAGING 140'S PER PCU SENIOR FACILITIES MANAGER. NOTIFIED CHARGE NURSE AGAIN & NOTIFIED DR DELGADO. HE ORDERED ANOTHER 1X DOSE OF 5MG LOPRESSOR & ASKED TO BE NOTIFIED IF HR DOSE NOT DECREASE WITHIN AN HOUR. I WILL CONTINUE TO MONITOR.
--- NOTE | 2019-09-14 02:59 | NUR ---
HR/RHYTHM AT 0252 GAVE 1X DOSE 5MG IV LOPRESSOR PER ORDERS. A FLUTTER W/HR 130'S BEFORE ADMINISTRATION. NOTIFIED @0302 HR HAD DROPPED TO 100. I WILL CONTINUE TO MONITOR PT.
--- NOTE | 2019-09-14 04:35 | NUR ---
CALLED ASSEMBLER FAUCETS AT 0414. A.FLUTTER AT 103, HR TRENDING AT LOW 100'S. PT CURRENTLY SLEEPING. WILL CONINTUE TO MONITOR.
[2019-09-14 05:07] LABS: BASOPHILS ABSOLUTE AUTO 0.05 K/mm3 (0.00-0.23); BASOPHILS PERCENT AUTO 1 % (0-2); EOSINOPHILS ABSOLUTE AUTO 0.04 K/mm3 (0.00-0.68); EOSINOPHILS PERCENT AUTO 1 % (0-6); Hematocrit 31.4 % (33.0-51.0); Hemoglobin 9.3 g/dL (11.5-16.0); IMMATURE GRAN ABSOLUTE AUTO 0.01 K/mm3 (0.00-0.10); IMMATURE GRAN PERCENT AUTO 0 % (0-1); LYMPHOCYTES ABSOLUTE AUTO 0.83 K/mm3 (0.84-5.20); LYMPHOCYTES PERCENT AUTO 13 % (21-46); MONOCYTES ABSOLUTE AUTO 0.42 K/mm3 (0.16-1.47); MONOCYTES PERCENT AUTO 7 % (4-13); Mean Corpuscular HGB 27.5 pg (26.0-34.0); Mean Corpuscular HGB Conc 29.6 g/dL (31.5-36.5); Mean Corpuscular Volume 93 fL (80-100); Mean Platelet Volume 9.7 fL (9.1-12.4); NEUTROPHILS ABSOLUTE AUTO 5.12 K/mm3 (1.96-9.15); NEUTROPHILS PERCENT AUTO 79 % (41-73); Platelet Count 279 K/mm3 (150-400); RDW Coefficient Variation 15.7 % (11.7-14.2); RDW Standard Deviation 52.5 fL (35.1-46.3); Red Blood Cell Count 3.38 M/mm3 (3.80-5.20); White Blood Cell Count 6.47 K/mm3 (4.00-11.30)
--- NOTE | 2019-09-14 05:23 | NUR ---
POULTRY FARM WORKER SUMMARY PT A/O X1 TO SELF. MUMBLES INCOMPREHENSIBLE WORDS MOST OF THE TIME. CAN ANSWER SOME YES AND NO QUESTIONS. UP TO BEDSIDE COMMODE WITH 2 ASSIST AND GAIT BELT. ABLE TO FOLLOW COMMANDS MOST OF THE TIME. RIGHT EYE DROOP NOTED. LEFT SIDE WEAKNESS. DID NOT GET MUCH SLEEP THROUGHOUT THE NIGHT. A. FLUTTER WITH HR IN THE 140S-160S MIDDLE OF SHIFT. SEE PREVIOUS NOTES FOR INTERVENTION. NOW A. FLUTTER TRENDING IN THE LOW 100'S. PT RESTLESS AND TEARFUL AT TIMES AND WHEN ASKED WHAT IS WRONG PT STATED "EVERYTHING". ATIVAN IV PUSH GIVEN PER EMAR FOR ANIEXTY. PT SLEPT SHORTLY THIS WAS GIVEN. WILL CONINUE TO MONITOR.
[2019-09-14 05:25] LABS: Anion Gap 8 mmol/L (6-16); Blood Urea Nitrogen 22 mg/dL (8-24); Bun/Creatinine Ratio 23.3 (12.0-20.0); CO2, Blood 24 mmol/L (21-32); Calcium, Blood 8.8 mg/dL (8.5-10.1); Chloride, Blood 115 mmol/L (98-108); Creatinine, Blood 0.94 mg/dL (0.40-1.00); Glomerular Filtration Rate >60 (60-); Glucose, Blood 100 mg/dL (70-99); Potassium, Blood 3.4 mmol/L (3.5-5.5); Sodium, Blood 147 mmol/L (136-145)
--- NOTE | 2019-09-14 05:54 | NUR ---
HR/RHYTHM AT 0530 I WAS NOTIFIED, BY PCU PING PONG TABLE ASSEMBLER, PT WAS A. FLUTTER W/HR IN 150'S & SHE HAD BEEN SUSTAINING THIS FOR A FEW MIN. AT THIS TIME PT WAS VERY RESTLESS, PULLING ON BLANKETS, IMPULSIVLEY MOVING LIMBS OFF SIDE OF BED, SITTING STRAIGHT UP & LYING BACK DOWN REPETITIVELY, PLUS ATTEMPTED TO GET OOB W/O HELP 2X. I NOTIFIED CHARGE NURSE EMETERIO Mazariegos. MEDICATED W/1 MG IV ATIVAN PER ORDERS. AT 0555 HR HAD DROPPED TO LOW 100'S STILL @A. FLUTTER. PT SLEEPING & RESTING COMFORTABLY @THIS TIME, WILL CONTINUE TO MONITOR.
--- NOTE | 2019-09-14 08:22 | NUR ---
PATIENT DID NOT EAT BREAKFAST THIS SHIFT DUE TO BEING NPO AT THIS TIME. RN NOTIFIED.
--- NOTE | 2019-09-14 10:18 | NUR ---
IT WAS NOTED WHILE CHARTING I'S AND O'S THAT PATIENT HAS A FOLLEY, PATIENT DOES NOT HAVE A FOLLEY AT THIS TIME. PATIENT HAS BEEN VOIDING ON THE BEDSIDE COMMODE. RN WAS NOTIFIED OF THE FOLLEY CHARTED.
--- NOTE | 2019-09-14 12:21 | NUR ---
PATIENT DID NOT EAT LUNCH THIS SHIFT DUE TO BEING NPO AT THIS TIME. RN NOTIFIED.
--- NOTE | 2019-09-14 16:26 | NUR ---
SHIFT SUMMARY PATIENT RESTLESS AND OFTEN TRING TO CLIMB OUT OF BED THIS SHIFT. PATIENT HAD DIFFIUCLTY EXPRESSING NEEDS VERBALLY. PATIENT UP 2 ASSIST TO [facility] [place] WITH GAIT BELT. PATIENT TRANSITIONED TO COMFORT CARE TODAY AND WILL DISCHARGE HOME ON HOSPICE, LIKELY ON FRIDAY. PATIENT'S HEART RATE HAS CONTINUED TO BE ELEVATED. PATIENT GIVEN IV LOPRESSOR AND ATIVAN PRN. PATIENT MEDICATED X 1 FOR PAIN BASED ON NOVERBAL INDICATORS. CALL LIGHT IN REACH.
--- NOTE | 2019-09-14 16:48 | NUR ---
met with DIL they had family meetingand decided to go with hospice. she is grievieng having to make such a hard decision and seeing her decline. Supportive and [place]ap[place] time with her. Review of pt aggiation and behavious and how she holds her body suggested we try a low dose of medication for pain. Review of conversation with hospitalist and cofort care orders initiated. At thistime plan is to keep telemetry and prn cardiac medications. pt not emminent but high risk for sudden . will montitor her for symptoms and response to medication changes.
--- NOTE | 2019-09-14 18:26 | NUR ---
Spiritual Care note: Met with Mary, pt's DIL. She is tearful, but appropriate with decision by family to go with hospice. Pt appears much more calm and comfortable now. Provided prayer for pt at bedside. [employer] will remain available.
--- NOTE | 2019-09-14 22:08 | NUR ---
HR/RHYTHM AT 2140 I WAS NOTIFIED PTS HR HAD INCREASED TO 160'S PER PCU RETURNED CASE INSPECTOR. PT WAS RESTLESS, PICKING @LINEN, REACHING OOB & IMPULSIVELY MOVING LEGS OOB. DENIES PAIN WHEN ASKED STATES "NO" & NO NON-VERBAL S/S OF PAIN. GAVE IV LOPRESSOR & HALDOL PER ORDERS. I WILL CONTINUE TO MONITOR.
--- NOTE | 2019-09-15 06:34 | NUR ---
SHIFT SUMMARY PT CHANGED TO COMFORT CARE YESTERDAY. ALERT TO VERBAL STIMULI. SPEECH IS GARBLED & SHE IS UNABLE TO VERBALIZE NEEDS. CAN ANSWER YES/NO QUESTIONS BY NODDING HEAD. FOLLOWS DIRECTIONS. STILL CHECKING VS TO MONITOR HR & BP, SINCE PT RECIEVING IV LOPRESSOR TO MAINTAIN COMFORT. TELE IN PLACE, PT A FLUTTER T/O NIGHT HR RANGING LOW 100-180, GAVE 5MG IV LOPRESSOR 1X, SEE PREVIOUS NOTE. PT WAS AGITATED/RESTLESS ATTEMPTING TO GET OOB & PICKING @BLANKETS/TELE LEADS LAST NIGHT, GAVE IV HALDOL 1X. PT DENIED PAIN WHEN ASKED, HOWEVER SHOWED MANY NON-VERBAL S/S OF PAIN & WAS MOANING, RESTLESS, KICKING LEGS, GRIMACING- THERFORE MEDICATED 1X W/ROXANOL & PT RESTED COMFORTABLY SLEEPING. THIS AM PT REPORTS SHE WANTS TO SEE HER & FEELS WORRIED ABOUT HIM. NOTIFIED HER WE WILL HAVE DAY SHIFT CALL FAMILY TODAY. CALL LIGHT IS IN REACH & BED ALARM IS IN PLACE.
[2019-09-15] MEDS ORDERED: HALO5 (13:10)
[2019-09-15] MEDS ORDERED: MORP20L (13:11)
[2019-09-15] MEDS ORDERED: ONDA4ODT (13:12)
--- NOTE | 2019-09-15 16:24 | NUR ---
DISCHARGE PATIENT DISCHARGED HOME WITH [facility]. PACKET GIVEN TO PUBLIC HEALTH ADVISOR. PATIENT TRANSPORTED VIA GURNEY. IV REMOVED WITHOUT DIFFICULTY. BELONGINGS WITH PATIENT. FAMILY CALLED TO INFORM THAT PATIENT WAS EN ROUTE.
--- NOTE | 2019-09-18 03:23 | NUR ---
LATE ENTRY FOR 09/11/190 SHIFT SUMMARY PT GRADUALLY PROGRESSED WITH COMMUNICATION ATTEMPTS. FAMILY AT BEDSIDE MOST OF THE DAY. SPEECH AND PT EVAL'S DONE. PT FREQUENTLY INDICATED SHE HAD TO USE THE BATHROOM. REMINDED OF [facility] OFTEN. MEDICATED FOR PAIN NEEDED. DAUGHTER STATED PT USES [facility] T/O THE DAY AT HOME. PT MOVED TO [facility] FOR CLOSER OBSERVATION SHE WAS BECOMING MORE RESTLESS WANTING TO GET OUT BED. PAIN MEDS GIVEN. RESTING QUIETLY WHEN REPORT GIVEN TO LOBO RN.
--- NOTE | 2019-09-18 03:52 | NUR ---
LATE ENTRY FOR 09/11/19 @ 6072 HEAD TO TOE ASSESSMENT PT ALERT UNABLE TO COMMUNICATE CLEARLY. MUMBLED SPEECH. LEFT SIDED FACIAL DROOP AND DEFICIT. LS CLEAR. BT X4. PPP. SKIN PWD. [facility] IN PLACE AND COLLECTING URINE. IV PATENT INF INFUSING. TUBES WRAPPED AND HIDDEN. VSS.
== END 2019-09-15 16:15 | disposition hospice, home (50) | DRG 65 ==
LOC: ER 09:14 → MEDS 09:15 → PCU 09-11 01:21 → MEDS 09-13 14:20 → ENPENDDIS 09-15 11:09 → MEDS 09-15 16:15
PROVIDERS: Emergency Medicine; Family Medicine; ADMIT Internal Medicine
DX: I63.9 Cerebral infarction, unspecified (principal); N39.0 Urinary tract infection, site not specified; R53.1 Weakness; R29.810 Facial weakness; G30.9 Alzheimer's disease, unspecified; F02.80 Dementia in other diseases classified elsewhere, unspecified severity, without behavioral disturbance, psychotic disturbance, mood disturbance, and anxiety; I48.0 Paroxysmal atrial fibrillation; I10 Essential (primary) hypertension; Z79.82 Long term (current) use of aspirin; E03.9 Hypothyroidism, unspecified; Z66 Do not resuscitate; B95.2 Enterococcus as the cause of diseases classified elsewhere
CPT/HCPCS: 36415; 51702; 70450; 80048; 80053; 81001; 84443; 85025; 85027; 85610; 85730; 87077; 87086; 87186; 92526; 92610; 93005; 93010; 96374-59; 96375-59; 97110; 97112; 97162; 97166; 97530; 99285-25; J0696; J1630; J1650; J2060; J2405; J3010; J7030